=== PATIENT | male | born 1940 | race Caucasian/White ===

== ENCOUNTER 2021-09-20 11:53 | Outpatient (CLI) | payer MEDICARE ==
[2021-09-20 13:35] LABS: Hemoglobin 13.3 g/dL (13.5-17.5); Mean Corpuscular HGB CONC 33.8 g/dL (32.0-36.0); Mean Corpuscular Hemoglobin 29.6 pg (27.0-33.0); Mean Corpuscular Volume 87.8 fl (81.2-95.1); Mean Platelet Volume 10.5 fl (7.4-10.4); Platelet Count 226 10x3/uL (150-450); RBC Distribution Width 12.9 % (11.5-14.5); Red Blood Cell (RBC) Count 4.49 10x6/uL (4.32-5.72); White Blood Cell (WBC) Count 5.9 10x3/uL (3.5-10.5)
[2021-09-20 13:50] LABS: Anion Gap 12 mmol/L (10-20); BUN (Urea Nitrogen) 23 mg/dL (8.4-25.7); Calc. Creatinine Clearance 0 mL/min (70-130); Calcium 8.8 mg/dL (7.8-10.44); Carbon Dioxide 22 mmol/L (23-31); Chloride 108 mmol/L (98-107); Glucose 125 mg/dL (83-110); Potassium 4.4 mmol/L (3.5-5.1); Sodium 138 mmol/L (136-145)
[2021-09-20 13:55] LABS: INR-International Normal Ratio 0.9; PTT 27.3 sec (22.0-33.0); Prothrombin Time 10.3 sec (9.5-12.1)
[2021-09-21 11:47] LABS: SARS-CoV-2 PCR by NAA Not Detected (NotDetected)
== END 2021-09-20 11:54 | disposition home or self-care (01) ==
LOC: CSHLAB 11:53
PROVIDERS: ATTEND Internal Medicine Cardiovascular Disease
DX: Z01.818 Encounter for other preprocedural examination (principal); Z20.822 Contact with and (suspected) exposure to COVID-19; I65.21 Occlusion and stenosis of right carotid artery
CPT/HCPCS: 71046; 80048; 85027; 85610; 85730; 93005; 93010; U0003; U0005

== ENCOUNTER 2021-09-24 07:07 | Inpatient (IN) | payer MEDICARE ==
[2021-09-24] MEDS ORDERED: PHENYLEPHRINE-NS 100 MCG/ML 10 ML SYRINGE ONE (07:18)
[2021-09-24] MEDS ORDERED: Heparin 10,000 UNITS/ 10 ML VIAL ONE ×2 (07:18→09:41)
[2021-09-24] MEDS ORDERED: Atropine Sulfate 0.4 mg/1 ml Vial ONE (07:19)
[2021-09-24] MEDS ORDERED: Lidocaine 1% (PF) 30 ML VIAL ONE (07:22)
[2021-09-24] MEDS ORDERED: Nitroglycerin 50 MG/250 ML BOT 0 ML ONE (07:23)
[2021-09-24] MEDS ORDERED: Phenylephrine 40 MG/NS 250 ML 250 ML ONE (07:28)
[2021-09-24] MEDS ORDERED: Aspirin Chewable 81 MG TAB ONE (07:51)
[2021-09-24] MEDS ORDERED: Fentanyl 100 MCG/2 ML VIAL ONE (08:13)
[2021-09-24] MEDS ORDERED: Midazolam HCl 2 mg/2 ml Vial ONE (08:14)
[2021-09-24] MEDS ORDERED: Iopamidol 300 61% 100 ML VIAL FS ONE (10:24)
[2021-09-24 10:28] VITALS: BMI 25.0
[2021-09-24] MEDS: Sodium Chloride 0.9% 1,000 ML IV SCH ×2 (10:33→21:23)
[2021-09-24] MEDS ORDERED: Milk Of Magnesia 30 ML UDCUP PO PRN (10:38)
[2021-09-24] MEDS ORDERED: cloNIDine 0.1 MG TAB PO PRN (10:38)
[2021-09-24] MEDS: Clopidogrel Bisulfate 75 MG TAB PO SCH (11:21)
[2021-09-24] MEDS ORDERED: Atorvastatin Calcium 40 MG TAB PO SCH (21:00)
[2021-09-24] MEDS: Amlodipine 5 MG TAB PO SCH (21:22)
[2021-09-25] MEDS ORDERED: Acetaminophen 325 MG TAB PO PRN (02:00)
[2021-09-25] MEDS: Sodium Chloride 0.9% 1,000 ML IV SCH (03:17)
[2021-09-25 04:55] LABS: #Basophils 0.1 10x3/uL (0.0-0.2); #Eosinphils 0.3 10x3/uL (0.0-0.5); #Monocytes 0.7 10x3/uL (0.0-1.1); #Neutrophils 5.1 10x3/uL (1.5-8.4); %Basophils 0.8 % (0.0-2.0); %Eosinophils 3.8 % (0.0-6.0); %Lymphocytes 16.2 % (18.0-47.0); %Monocytes 9.1 % (0.0-10.0); Hemoglobin 11.8 g/dL (13.5-17.5); Mean Corpuscular Hemoglobin 29.4 pg (27.0-33.0); Mean Corpuscular Volume 86.3 fl (81.2-95.1); Mean Platelet Volume 10.6 fl (7.4-10.4); Platelet Count 190 10x3/uL (150-450); RBC Distribution Width 12.9 % (11.5-14.5); Red Blood Cell (RBC) Count 4.02 10x6/uL (4.32-5.72); White Blood Cell (WBC) Count 7.3 10x3/uL (3.5-10.5)
[2021-09-25 05:16] LABS: ALT (SGPT) 7 U/L (8-55); AST (SGOT) 12 U/L (5-34); Albumin 3.4 g/dL (3.4-4.8); Alkaline Phosphatase 73 U/L (40-110); Anion Gap 13 mmol/L (10-20); BUN (Urea Nitrogen) 21 mg/dL (8.4-25.7); Bilirubin, Total 0.8 mg/dL (0.2-1.2); Calc. Creatinine Clearance 62 mL/min (70-130); Calcium 8.6 mg/dL (7.8-10.44); Carbon Dioxide 22 mmol/L (23-31); Chloride 109 mmol/L (98-107); Globulin 2.2 g/dL (2.4-3.5); Glucose 106 mg/dL (83-110); Potassium 3.9 mmol/L (3.5-5.1); Protein, Total 5.6 g/dL (5.8-8.1); Sodium 140 mmol/L (136-145)
[2021-09-25] MEDS: Amlodipine 5 MG TAB PO SCH (08:43)
[2021-09-25] MEDS: Clopidogrel Bisulfate 75 MG TAB PO SCH (08:43)
[2021-09-25] MEDS ORDERED: Aspirin Chewable 81 MG TAB PO SCH (09:00)
[2021-09-25] MEDS ORDERED: Clopidogrel Bisulfate 75 MG TAB PO SCH (09:00)
[2021-09-25] MEDS ORDERED: Finasteride 5 MG TAB PO SCH (09:00)
[2021-09-25] MEDS ORDERED: Lisinopril 20 MG TAB PO SCH (09:00)
[2021-09-25] MEDS ORDERED: BENAZEPRIL HCL 40 MG PO SCH (09:00)
[2021-09-25] MEDS ORDERED: Tamsulosin HCl 0.4 MG CAP PO SCH (09:00)
[2021-09-25] MEDS ORDERED: Aspirin 81 mg Enteric Coated Tablet PO SCH (09:00)
[2021-09-25 11:22] VITALS: BP 114/67; TEMP 97
== END 2021-09-25 15:45 | disposition home or self-care (01) | DRG 36 ==
LOC: CSHSDC 07:07 → CSHICU 10:48
PROVIDERS: ADMIT Internal Medicine Cardiovascular Disease; ATTEND Internal Medicine Cardiovascular Disease
PROC: 037H34Z Dilation of Right Common Carotid Artery with Drug-eluting Intraluminal Device, Percutaneous Approach (ICD-10-PCS; principal; 2021-09-24)
PROC: B3051ZZ Plain Radiography of Bilateral Common Carotid Arteries using Low Osmolar Contrast (ICD-10-PCS; 2021-09-24)
PROC: B3081ZZ Plain Radiography of Bilateral Internal Carotid Arteries using Low Osmolar Contrast (ICD-10-PCS; 2021-09-24)
PROC: B4001ZZ Plain Radiography of Abdominal Aorta using Low Osmolar Contrast (ICD-10-PCS; 2021-09-24)
DX: I65.21 Occlusion and stenosis of right carotid artery (principal); I25.10 Atherosclerotic heart disease of native coronary artery without angina pectoris; Z95.1 Presence of aortocoronary bypass graft; E11.9 Type 2 diabetes mellitus without complications; E78.5 Hyperlipidemia, unspecified; N40.0 Benign prostatic hyperplasia without lower urinary tract symptoms
CPT/HCPCS: 36223; 36227; 36415; 37215; 80053; 85025; 85347; 93005; 93010; 99152; 99153; C1760; C1769; C1876; C1884; C1894; J0461; J1644; J2001; J2250; J3010; J7050; Q9967

== ENCOUNTER 2023-10-22 12:55 | Outpatient (CLI) | payer MEDICARE | END 2023-10-22 12:56 | disposition home or self-care (01) | LOC: CSHLAB 12:55 | PROVIDERS: ATTEND Internal Medicine Cardiovascular Disease | DX: Z01.818 Encounter for other preprocedural examination (principal); I65.22 Occlusion and stenosis of left carotid artery | CPT/HCPCS: 71046 ==

== ENCOUNTER 2023-10-23 07:20 | Inpatient (IN) | payer MEDICARE ==
[2023-10-22 14:54] LABS: Hematocrit 41.3 % (38.8-50.0); Hemoglobin 14.4 g/dL (13.5-17.5); Mean Corpuscular HGB CONC 34.9 g/dL (32.0-36.0); Mean Corpuscular Hemoglobin 29.8 pg (27.0-33.0); Mean Corpuscular Volume 85.3 fL (81.2-95.1); Mean Platelet Volume 10.7 fL (7.4-10.4); Platelet Count 259 10x3/uL (150-450); RBC Distribution Width 12.8 % (11.5-14.5); Red Blood Cell (RBC) Count 4.84 10x6/uL (4.32-5.72); White Blood Cell (WBC) Count 7.9 10x3/uL (3.5-10.5)
[2023-10-22 15:05] LABS: PTT 27.3 sec (22.0-33.0); Prothrombin Time 10.7 sec (9.5-12.1)
[2023-10-22 15:18] LABS: Anion Gap 14 mmol/L (10-20); BUN (Urea Nitrogen) 24 mg/dL (8.4-25.7); Calc. Creatinine Clearance 0 mL/min (70-130); Calcium 9.6 mg/dL (7.8-10.44); Carbon Dioxide 25 mmol/L (23-31); Chloride 103 mmol/L (98-107); Estimated GFR 60; Glucose 317 mg/dL (83-110); Potassium 4.8 mmol/L (3.5-5.1); Sodium 137 mmol/L (136-145)
[2023-10-23] MEDS ORDERED: Aspirin Chewable 81 MG TAB ONE (07:54)
[2023-10-23] MEDS ORDERED: Phenylephrine 40 MG/NS 250 ML 250 ML ONE (08:16)
[2023-10-23] MEDS ORDERED: Heparin 10,000 UNITS/ 10 ML VIAL ONE ×2 (08:18→09:58)
[2023-10-23] MEDS ORDERED: Nitroglycerin 50 MG/250 ML BOT 0 ML ONE (08:18)
[2023-10-23] MEDS ORDERED: Atropine Sulfate 1 mg/1 ml Vial ONE ×2 (08:18→08:50)
[2023-10-23] MEDS ORDERED: PHENYLEPHRINE-NS 100 MCG/ML 10 ML SYRINGE ONE (08:21)
[2023-10-23] MEDS ORDERED: fentaNYL 50 mcg/mL 1 mL Vial ONE (08:51)
[2023-10-23] MEDS ORDERED: Midazolam HCl 2 mg/2 ml Vial ONE (08:51)
[2023-10-23] MEDS ORDERED: Lidocaine 1% (PF) 30 ML VIAL ONE (09:07)
[2023-10-23] MEDS ORDERED: Iopamidol 300 61% 100 ML VIAL FS ONE (10:57)
[2023-10-23] MEDS ORDERED: cloNIDine 0.1 MG TAB PO PRN (11:34)
[2023-10-23] MEDS ORDERED: Milk Of Magnesia 30 ML UDCUP PO PRN (11:34)
[2023-10-23] MEDS ORDERED: Mag-Al 1200 mg/1200 mg/30 ML UDCUP PO PRN (11:34)
[2023-10-23 12:16] VITALS: BMI 22.2
[2023-10-23] MEDS: Clopidogrel Bisulfate 75 MG TAB PO SCH (12:31)
[2023-10-23] MEDS: Sodium Chloride 0.9% 1,000 ML IV SCH (12:35)
[2023-10-24 04:09] LABS: ALT (SGPT) Less than 7 U/L (8-55); AST (SGOT) 8 U/L (5-34); Albumin 2.9 g/dL (3.4-4.8); Alkaline Phosphatase 85 U/L (40-110); Anion Gap 10 mmol/L (10-20); BUN (Urea Nitrogen) 16 mg/dL (8.4-25.7); Bilirubin, Total 0.5 mg/dL (0.2-1.2); Calc. Creatinine Clearance 68 mL/min (70-130); Calcium 8.2 mg/dL (7.8-10.44); Carbon Dioxide 22 mmol/L (23-31); Chloride 110 mmol/L (98-107); Estimated GFR 86; Globulin 2.2 g/dL (2.4-3.5); Glucose 236 mg/dL (83-110); Potassium 3.7 mmol/L (3.5-5.1); Protein, Total 5.1 g/dL (5.8-8.1); Sodium 138 mmol/L (136-145)
[2023-10-24 07:19] VITALS: TEMP 97.9
[2023-10-24] MEDS: Atorvastatin Calcium 40 MG TAB PO SCH (07:50)
[2023-10-24] MEDS: Tamsulosin HCl 0.4 MG CAP PO SCH (07:51)
[2023-10-24] MEDS: Finasteride 5 MG TAB PO SCH (07:51)
[2023-10-24] MEDS: Clopidogrel Bisulfate 75 MG TAB PO SCH (07:51)
[2023-10-24] MEDS: Lisinopril 20 MG TAB PO SCH (07:52)
[2023-10-24] MEDS: Aspirin Chewable 81 MG TAB PO SCH (07:52)
[2023-10-24] MEDS: Amlodipine 5 MG TAB PO SCH (07:52)
[2023-10-24 08:05] VITALS: BP 148/74
[2023-10-24] MEDS ORDERED: Aspirin Chewable 81 MG TAB PO SCH (12:00)
== END 2023-10-24 09:44 | disposition home or self-care (01) | DRG 27 ==
LOC: CSHCCL 07:20 → CSHTELE 11:50
PROVIDERS: ADMIT Internal Medicine Cardiovascular Disease; ATTEND Internal Medicine Cardiovascular Disease
PROC: 03CL3ZZ Extirpation of Matter from Left Internal Carotid Artery, Percutaneous Approach (ICD-10-PCS; principal; 2023-10-23)
PROC: 03CJ3ZZ Extirpation of Matter from Left Common Carotid Artery, Percutaneous Approach (ICD-10-PCS; 2023-10-23)
DX: I65.23 Occlusion and stenosis of bilateral carotid arteries (principal); I95.9 Hypotension, unspecified; I25.10 Atherosclerotic heart disease of native coronary artery without angina pectoris; G45.9 Transient cerebral ischemic attack, unspecified; I10 Essential (primary) hypertension; E11.9 Type 2 diabetes mellitus without complications; N40.0 Benign prostatic hyperplasia without lower urinary tract symptoms; E78.5 Hyperlipidemia, unspecified; Z98.890 Other specified postprocedural states; R06.81 Apnea, not elsewhere classified; R94.31 Abnormal electrocardiogram [ECG] [EKG]
CPT/HCPCS: 36223; 36228; 36415; 36416; 37215; 80048; 80053; 85027; 85347; 85610; 85730; 86850; 86900; 86901; 93005; 93010; 99152; 99153; C1760; C1769; C1876; C1884; C1887; C1894; J0461; J1644; J2001; J2250; J3010; J7050; Q9967